=== PATIENT | female | born 1950 | race Caucasian/White ===

== ENCOUNTER 2019-06-10 09:07 | Emergency (ER) | payer MEDICARE, MEDICAID ==
[~2019-06-10] VITALS: Ht 152.4 cm; Wt 54.1 kg
[~2019-06-10 09:07] MED LIST: ONDA4TAB12 PO
[2019-06-10 09:09] VITALS: BP 149/83
== END 2019-06-10 09:57 | disposition home or self-care (01) ==
LOC: ER 09:08
DX: S29.9XXA Unspecified injury of thorax, initial encounter (principal); J44.9 Chronic obstructive pulmonary disease, unspecified; F17.200 Nicotine dependence, unspecified, uncomplicated; Z88.0 Allergy status to penicillin; Z88.5 Allergy status to narcotic agent; Z79.899 Other long term (current) drug therapy; W18.39XA Other fall on same level, initial encounter; Y93.89 Activity, other specified; Y92.89 Other specified places as the place of occurrence of the external cause; Y99.8 Other external cause status
CPT/HCPCS: 99281

== ENCOUNTER 2021-03-14 09:01 | Emergency (ER) | payer MEDICARE, MEDICAID ==
[~2021-03-14] VITALS: Ht 154.9 cm; Wt 55.0 kg
--- NOTE | 2021-03-14 12:34 | NUR ---
pelvic step done at bedside ,assisted dr mateus md explained the pt that she has to transfer the pt to 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
--- NOTE | 2021-03-14 12:55 | NUR ---
spoke to pt daughter as i got verbal authoriazation from pt to tell her daighter what the plan of care ,informed that if pt will be transfered out will give her call at [phone].
[2021-03-14 13:56] LABS: BASOPHILS # (AUTO) 0.1 X10'3 (0-0.2); BASOPHILS % (AUTO) 0.5 % (0-1); EOSINOPHILS # (AUTO) 0.3 X10'3 (0-0.9); EOSINOPHILS % (AUTO) 1.3 % (0-6); HEMATOCRIT 36.3 % (35.0-45.0); HEMOGLOBIN 11.7 g/dl (12.0-16.0); LYMPHOCYTES # (AUTO) 2.1 X10'3 (1.1-4.8); LYMPHOCYTES % (AUTO) 9.7 % (21-51); MEAN CORPUSCULAR HGB CONC 32.2 g/dL (33.0-36.5); MEAN PLATELET VOLUME 7.8 FL (7.4-10.4); MONOCYTES # (AUTO) 1.5 X10'3 (0-0.9); MONOCYTES % (AUTO) 7.1 % (2-12); NEUTROPHILS # (AUTO) 17.3 X10'3 (1.8-7.7); NEUTROPHILS % (AUTO) 81.4 % (42-75); PLATELET COUNT 554 X10'3 (140-440); RED BLOOD COUNT 4.04 X10'6 (4.20-5.60); RED CELL DISTRIBUTION WIDTH 13.5 % (11.5-14.5); WHITE BLOOD COUNT 21.2 X10'3 (4.5-11.0)
[2021-03-14 14:11] LABS: ALANINE AMINOTRANSFERASE 11 U/L (12-78); ALBUMIN 2.2 G/DL (3.4-5.0); ALBUMIN/GLOBULIN RATIO 0.4 (1.1-1.5); ALKALINE PHOSPHATASE 107 IU/L (46-116); ANION GAP 10 (8-16); ASPARTATE AMINO TRANSFERASE 10 U/L (10-37); BILIRUBIN,TOTAL 0.1 MG/DL (0.1-1.0); BLOOD UREA NITROGEN 15 MG/DL (7-18); BUN/CREATININE RATIO 21.1 (6.6-38.0); CHLORIDE 110 MMOL/L (99-107); CREATININE 0.71 MG/DL (0.40-0.90); GLUCOSE 84 MG/DL (70-104); POTASSIUM 3.6 MMOL/L (3.5-5.1); SODIUM 146 MMOL/L (135-145); TOTAL CARBON DIOXIDE 26.5 MMOL/L (24-32); TOTAL PROTEIN 7.3 G/DL (6.4-8.2); eGFR 81 ML/MIN
[2021-03-14 14:14] LABS: CLARITY,URINE CLOUDY (Clear); COLOR,URINE YELLOW (Yellow); GLUCOSE, URINE NEGATIVE (Neg); KETONES,URINE NEGATIVE (Neg); LEUKOCYTE ESTERASE ,URINE MODERATE (Neg); NITRITES, URINE POSITIVE (Neg); OCCULT BLOOD,URINE TRACE-INTACT (Neg); PROTEIN,URINE 30 mg/dl (Neg); UA COLLECTION TYPE CLN CATCH MIDSTREAM
[2021-03-14] MEDS ORDERED: metroNIDAZOLE-Flagyl 500mg/NS 100 ML IV ONE (14:25)
[2021-03-14] MEDS ORDERED: CefTRIAXone/D5W-Rocephin 1gm 50 ML IV ONE (14:25)
[2021-03-14 14:29] LABS: SQUAMOUS EPITHELIAL CELL,UR MODERATE /LPF (FEW)
[2021-03-14 14:31] LABS: BACTERIA,URINE 4+ /HPF (Neg); RBC,URINE 0-2 /HPF (0-2)
--- NOTE | 2021-03-14 14:39 | NUR ---
clarified with dr jon if blood cultures are needed for the pt as per md its not needed.
[2021-03-14 14:59] VITALS: BP 142/55
[2021-03-14] MEDS ORDERED: iohexol 300mg/ml 100ml inj. ONE (15:08)
--- NOTE | 2021-03-14 15:40 | NUR ---
to ct scan.
[2021-03-14] MEDS ORDERED: CIPR-202 PO (17:16)
== END 2021-03-14 17:29 | disposition home or self-care (01) ==
LOC: ER 09:01
DX: N89.8 Other specified noninflammatory disorders of vagina (principal); Z20.822 Contact with and (suspected) exposure to COVID-19; J43.9 Emphysema, unspecified; F17.200 Nicotine dependence, unspecified, uncomplicated; Z87.410 Personal history of cervical dysplasia; Z87.440 Personal history of urinary (tract) infections; Z88.0 Allergy status to penicillin; Z88.5 Allergy status to narcotic agent; Z88.8 Allergy status to other drugs, medicaments and biological substances; Z79.899 Other long term (current) drug therapy
CPT/HCPCS: 36415; 74177; 80053; 81001; 83605; 84145; 85025; 87077; 87088; 87186; 87491; 87591; 87635; 96365; 96368; 99285; C9803; J0696; J3490; Q9967

== ENCOUNTER 2022-11-03 11:33 | Emergency (ER) | payer MEDICARE, MEDICAID ==
[~2022-11-03] VITALS: Ht 152.4 cm; Wt 49.0 kg
[2022-11-03 11:46] VITALS: BP 163/70
[2022-11-03] MEDS ORDERED: HYDROcodone/acetaminophen 10/325mg tab PO ONE (12:00)
--- NOTE | 2022-11-03 13:14 | NUR ---
DAUGHTER IN ROOM WITH PATIENT.
[2022-11-03] MEDS ORDERED: TRAM50TA2 PO ×3 (13:17→13:36)
[2022-11-03] MEDS ORDERED: ONDA4TAB12 PO ×3 (13:17→13:36)
== END 2022-11-03 13:38 | disposition home or self-care (01) ==
LOC: ER 11:34
DX: S42.391A Other fracture of shaft of right humerus, initial encounter for closed fracture (principal); M25.532 Pain in left wrist; J43.9 Emphysema, unspecified; Z88.0 Allergy status to penicillin; Z88.5 Allergy status to narcotic agent; W18.39XA Other fall on same level, initial encounter; Y93.89 Activity, other specified; Y92.89 Other specified places as the place of occurrence of the external cause; Y99.8 Other external cause status
CPT/HCPCS: 29105; 73030; 73110; 99284; A4565; L3650

== ENCOUNTER 2022-11-16 09:47 | Emergency (ER) | payer MEDICARE, MEDICAID ==
[~2022-11-16] VITALS: Ht 152.4 cm; Wt 46.2 kg
[~2022-11-16 09:47] MED LIST changes: +TRAM50TA2 PO
[2022-11-16] MEDS ORDERED: HYDROcodone/acetaminophen 10/325mg tab PO ONE (10:20)
[2022-11-16 11:04] VITALS: BP 122/76
[2022-11-16] MEDS ORDERED: HYDR-3973 PO (11:06)
== END 2022-11-16 18:15 | disposition home or self-care (01) ==
LOC: ER 09:47
DX: M25.511 Pain in right shoulder (principal); M79.89 Other specified soft tissue disorders; J44.9 Chronic obstructive pulmonary disease, unspecified; J43.9 Emphysema, unspecified; F17.200 Nicotine dependence, unspecified, uncomplicated; Z88.0 Allergy status to penicillin; Z88.5 Allergy status to narcotic agent; Z79.899 Other long term (current) drug therapy; Z79.1 Long term (current) use of non-steroidal anti-inflammatories (NSAID); Z79.2 Long term (current) use of antibiotics; W18.39XA Other fall on same level, initial encounter; Y93.89 Activity, other specified; Y92.89 Other specified places as the place of occurrence of the external cause; Y99.8 Other external cause status
CPT/HCPCS: 71045; 73030; 99283

== ENCOUNTER 2023-09-04 13:49 | Emergency (ER) | payer MEDICARE, MEDICAID ==
[~2023-09-04] VITALS: Ht 152.4 cm; Wt 47.3 kg
[~2023-09-04 13:49] MED LIST changes: +HYDR-3973 PO
[2023-09-04 14:12] VITALS: BP 153/70; PULSE 91; TEMP 98.3; O2SAT 95
[2023-09-04 14:44] VITALS: RESP 20
[2023-09-04] MEDS ORDERED: LIDO700A32 TOP (14:49)
[2023-09-04] MEDS ORDERED: TRAM50TA2 PO (14:49)
== END 2023-09-04 14:58 | disposition home or self-care (01) ==
LOC: ER 13:49
DX: R07.81 Pleurodynia (principal); W19.XXXA Unspecified fall, initial encounter; Y93.89 Activity, other specified; Y92.89 Other specified places as the place of occurrence of the external cause; Y99.8 Other external cause status
CPT/HCPCS: 71101; 99284

== ENCOUNTER 2023-11-02 13:48 | Outpatient (CLI) | payer MEDICARE, MEDICAID ==
[~2023-11-02 13:48] MED LIST changes: +IBUP-1984 PO; +LIDO700A32 TOP
== END 2023-11-02 23:59 | disposition home or self-care (01) ==
LOC: RAD 13:48
PROVIDERS: ATTEND Physician Assistant
DX: M51.34 Other intervertebral disc degeneration, thoracic region (principal); I70.8 Atherosclerosis of other arteries
CPT/HCPCS: 72074

== ENCOUNTER 2023-11-24 08:12 | Emergency (ER) | payer MEDICARE, MEDICAID ==
[~2023-11-24] VITALS: Ht 152.4 cm; Wt 43.3 kg
[~2023-11-24 08:12] MED LIST changes: -IBUP-1984 PO
[2023-11-24 08:13] VITALS: TEMP 98.4
[2023-11-24 08:38] LABS: BILIRUBIN,URINE SMALL (Neg); CLARITY,URINE SLIGHTLY CLOUDY (Clear); COLOR,URINE YELLOW (Yellow); GLUCOSE, URINE NEGATIVE (Neg); KETONES,URINE 40 mg/dl (Neg); LEUKOCYTE ESTERASE ,URINE NEGATIVE (Neg); NITRITES, URINE NEGATIVE (Neg); OCCULT BLOOD,URINE NEGATIVE (Neg); PROTEIN,URINE NEGATIVE (Neg)
[2023-11-24 08:42] LABS: UA COLLECTION TYPE CLN CATCH MIDSTREAM
[2023-11-24 08:46] LABS: BACTERIA,URINE 1+ /HPF (Neg); MUCUS STRANDS FEW /LPF (Neg); RBC,URINE 0-2 /HPF (0-2); SQUAMOUS EPITHELIAL CELL,UR MODERATE /LPF (FEW); WBC,URINE 0-4 /HPF (0-4)
[2023-11-24] MEDS ORDERED: TRAM50TA2 PO (10:05)
[2023-11-24] MEDS: LIDOcaine 5% patch TP ONE (10:20)
[2023-11-24] MEDS: ketorolac tromethamine 15mg/ml inj. IM ONE (10:21)
[2023-11-24] MEDS: ketorolac trometh inj. 60 MG/2 ML VIAL IM ONE (10:21)
[2023-11-24 10:26] VITALS: BP 159/95; PULSE 94; RESP 16; O2SAT 96
== END 2023-11-24 10:41 | disposition home or self-care (01) ==
LOC: ER 08:13
DX: M54.50 Low back pain, unspecified (principal); J44.9 Chronic obstructive pulmonary disease, unspecified; Z88.0 Allergy status to penicillin; Z88.5 Allergy status to narcotic agent; Z79.899 Other long term (current) drug therapy
CPT/HCPCS: 72100; 81001; 96372; 99284; J1885

== ENCOUNTER 2025-04-25 16:29 | Emergency (ER) | payer MEDICARE, MEDICAID ==
[~2025-04-25] VITALS: Ht 152.4 cm; Wt 36.4 kg
[~2025-04-25 16:29] MED LIST changes: +LIDO-52 TOP; -LIDO700A32 TOP; +ONDA-243 PO; -ONDA4TAB12 PO
[2025-04-25 16:57] LABS: MEAN PLATELET VOLUME 7.6 FL (7.4-10.4); RED CELL DISTRIBUTION WIDTH 14.5 % (11.5-14.5)
[2025-04-25 17:09] LABS: CREATININE 0.71 MG/DL (0.40-0.90); TOTAL CARBON DIOXIDE 24.3 MMOL/L (24-32); eCRCL 39 ML/MIN; eGFR 80 ML/MIN
--- NOTE | 2025-04-25 17:36 | RADIOLOGY REPORT ---
DI CHEST,TWO VIEWS CLINICAL HISTORY: sob COMPARISON: DI CHEST,TWO VIEWS on DOS: 11/12/23 TECHNIQUE: Frontal and lateral view of the chest was obtained FINDINGS: Lines and Tubes: None Lungs: No focal consolidation. Pleura: No effusion. No pneumothorax. Cardiomediastinal contours: Unremarkable Bones: [id number] loss of vertebral body height of a lower thoracic spine of unknown chronicity with moderate to severe chronic loss of vertebral body height of and upper to midthoracic spine vertebra IMPRESSION: No acute cardiopulmonary disease. Senescent changes of the lungs.
[2025-04-25] MEDS ORDERED: METH4TAB81 PO (19:59)
[2025-04-25] MEDS ORDERED: AZIT500T9 PO (19:59)
--- NOTE | 2025-04-25 19:59 | Physician Documentation ---
History of Present Illness ~ Chief Complaint: Cold, cough & congestion Stated Complaint: SOB Time Seen by MD: 16:42 Primary Medical Doctor: WILLIAM OROZCO Mode of Arrival: POV HPI 74-year-old female that presents to the emergency department for complaints of cough cold congestion times several days. Patient reports that he has COPD at baseline and gets pneumonia very easily. Patient reports that she has been coughing up green sputum for several days and may have had a fever although she has not taken her temperature. Patient denies any other symptoms at this time. Medication Reconciliation Allergies: Coded Allergies: Penicillins (Verified Allergy, Unknown, 04/25/25) codeine (Verified Allergy, Unknown, VOMITING, 04/25/25) morphine (Verified Allergy, Unknown, 04/25/25) Scheduled Azithromycin (Azithromycin), 1 TAB PO DAILY Lidocaine (Lidoderm), 1 PATCH TOP DAILY Methylprednisolone (Medrol Dosepak), 0 PO UD Tramadol Hcl (Tramadol Hcl), 1 TAB PO TID PRN Scheduled PRN Hydrocodone Bit/Acetaminophen (Hydrocodone-Apap 10-325 Tablet), 1 TABLET PO TID PRN for pain ONDANSETRON ODT 4mg tablet (Ondansetron Odt), 1 TABLET PO Q6H PRN for nausea/vomiting ONDANSETRON ODT 4mg tablet (Ondansetron Odt), 1 TABLET PO Q6H PRN for nausea/vomiting Tramadol HCl (Tramadol HCl), 1 TAB PO Q6H PRN PRN for pain Past Medical History Past Medical History: COPD, Emphysema, UTI, Chronic Pain, Chronic Back Pain, Cervical Cancer/Dysplasia Past Surgical History: noncontributory Alcohol Use: Other Drug Use: none Lives In: Home Occupation: retired Review of Systems ROS As stated above in the HPI, otherwise all systems are reviewed and negative. Physical Exam Vital Signs: Temperature: 98.2, Source: Temporal, Heart Rate: 107, Respiratory Rate: 14, BP: 126/68, Pulse Oximetry: 97, Weight: 36.400 Oxygen Flow Rate: 0 Physical Exam VITALS: Reviewed and as above. GENERAL: Alert, no apparent distress. HEENT: Normocephalic, atraumatic, PERRL, EOMI, dry mucosa, no erythema RESPIRATORY: Lungs clear, normal breath sounds, no respiratory distress. CHEST: Rhonchi and mild wheezing noted bilaterally, productive cough noted with green sputum. CV: Regular rate, rhythm, no edema, no murmur, No: JVD GI: Soft, non-tender, bowels sounds present, no rebound, guarding, or rigidity BACK: No CVA tenderness, or swelling MUSCULOSKELETAL No deformities, no edema SKIN: Warm and dry, no rash NEURO: Oriented x4, No motor or sensory deficit PSYCH: Normal mood and affect, no agitation Progress Results/Orders Results/Orders Vital Signs 04/25/25 04/25/25 04/25/25 04/25/25 16:41 17:16 17:19 18:23 Temp 97.6 98.2 Pulse 95 95 87 Resp 16 18 18 20 B/P (MAP) 132/63 128/67 (87) 108/63 (78) Pulse Ox 91 93 94 O2 Flow Rate 0 0 04/25/25 04/25/25 04/25/25 19:18 19:19 20:05 Temp 97.2 Pulse 107 96 Resp 14 22 B/P (MAP) 126/68 (87) 130/60 Pulse Ox 97 90 O2 Flow Rate 0 Laboratory Tests Test 04/25/25 16:51 White Blood Count 14.1 H Red Blood Count 4.41 Hemoglobin 13.7 Hematocrit 40.0 Mean Corpuscular Volume 90.7 Mean Corpuscular Hemoglobin 31.1 H Mean Corpuscular Hemoglobin Concent 34.3 Red Cell Distribution Width 14.5 Platelet Count 334 Mean Platelet Volume 7.6 Neutrophils (%) (Auto) 76.6 H Lymphocytes (%) (Auto) 14.6 L Monocytes (%) (Auto) 7.2 Eosinophils (%) (Auto) 1.0 Basophils (%) (Auto) 0.6 Neutrophils # (Auto) 10.8 H Lymphocytes # (Auto) 2.1 Monocytes # (Auto) 1.0 H Eosinophils # (Auto) 0.1 Basophils # (Auto) 0.1 CBC Comment Sodium Level 142 Potassium Level 3.9 Chloride Level 108 H Carbon Dioxide Level 24.3 Anion Gap 10 Blood Urea Nitrogen 20 H Creatinine 0.71 Estimated GFR/1.73 m2 80 BUN/Creatinine Ratio 28.2 H Glucose Level 115 H Calcium Level 8.6 Albumin 3.0 L Chemistry Comments Medical Decision Making Findings This patient presents with symptoms most consistent with an acute COPD exacerbation. These constellation of symptoms are similar to prior exacerbations. The likely precipitant is acute respiratory infection. Low suspicion for alternate etiologies such as pneumothorax, acute PE, pneumonia. Presentation not consistent with other acute cardiopulmonary causes including ACS, CHF. Patient will be sent home with steroid burst and azithromycin. Patient follow up with her primary care provider. Patient will return to the emergency department with any worsening or recurrent symptoms or any additional concerning symptoms that we discussed here today i.e. increased shortness of breath increase sputum production fever chills nausea vomiting chest pain chest pressure dizziness lightheadedness or any other concerning symptoms that we discussed here today. Differential Dx:Considerations: Include: Allergic rhinitis, Influenza, Otitis media, Peritonsillar abscess, Pharyngitis-Diphtheria, Pharyngitis-Streptoccal, Pharyngitis-Viral, Pneumonia, Pnuemonitis, Sinusitis, URI, Other Departure Disposition: 01 HOME / SELF CARE / HOMELESS Impression: Primary Impression: COPD exacerbation Additional Impressions: Cough Congestion of upper respiratory tract Productive cough Condition: Stable Discharge Instructions: COPD and Physical Activity, Upper Respiratory In fection, Adult Additional Instructions: This patient presents with symptoms most consistent with an acute COPD exacerbation. These constellation of symptoms are similar to prior exacerbations. The likely precipitant is acute respiratory infection. Low suspicion for alternate etiologies such as pneumothorax, acute PE, pneumonia. Presentation not consistent with other acute cardiopulmonary causes including ACS, CHF. Patient will be sent home with steroid burst and azithromycin. Patien t follow up with her primary care provider. Patient will return to the emergency department with any worsening or recurrent symptoms or any additional concerning symptoms that we discussed here today i.e. increased shortness of breath increase sputum production fever chills nausea vomiting chest pain chest pressure dizziness lightheadedness or any other concerning symptoms that we discussed here today. 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
[2025-04-25 20:05] VITALS: BP 130/60; PULSE 96; RESP 22; TEMP 97.2; O2SAT 90
--- NOTE | 2025-04-26 10:03 | ELECTROCARDIOGRAPH REPORT ---
[facility] Test Date: 2025-04-25 Test Time: 16:33:11 Pat Name: AALIYAH MANLEY Department: EMERGENCY ROOM Room: Gender: F Stone Driller: JACQUELINE : 1950 Requested By: DEPARTMENT EMERGENCY Order Number: [id number] Reading MD: Dr. Fabio Cook Measurements Intervals [place] Rate: 93 P: 81 [place]: 129 QRS: 87 QRSD: 80 T: 34 QT: 357 QTc: 445 Interpretive Statements Sinus rhythm Borderline right axis deviation Electronically Signed On 05-02-2025 7:51:[address] Fabio Cook Please click the below link to view image of tracing.
== END 2025-04-25 20:12 | disposition home or self-care (01) ==
LOC: ER 16:30
DX: J44.1 Chronic obstructive pulmonary disease with (acute) exacerbation (principal); G89.29 Other chronic pain; Z85.41 Personal history of malignant neoplasm of cervix uteri; Z88.0 Allergy status to penicillin; Z88.5 Allergy status to narcotic agent; Z79.899 Other long term (current) drug therapy
CPT/HCPCS: 36415; 71046; 80048; 85025; 93005; 99285; J7512